=== PATIENT | male | born 1955 | race Caucasian/White ===

== ENCOUNTER 2016-07-07 15:47 | Observation (INO) | payer MEDICARE, OTHER ==
[~2016-07-07] VITALS: Ht 172.7 cm; Wt 113.4 kg
[2016-07-07] MEDS ORDERED: CRESTOR10 MG PO (18:25)
[2016-07-07] MEDS ORDERED: CLARITIN10 MG PO (18:25)
[2016-07-07] MEDS ORDERED: ASPIRIN325 MG PO (18:25)
[2016-07-07] MEDS ORDERED: RANEXA1000 MG PO (18:26)
[2016-07-07] MEDS ORDERED: WARFARIN SODIUM3 MG PO (18:27)
[2016-07-07] MEDS ORDERED: WARFARIN SODIUM1 MG PO (18:27)
[2016-07-07] MEDS ORDERED: LOPRESSOR 25 MG25 MG PO (18:28)
[2016-07-07] MEDS ORDERED: ISOSORBIDE MONO60 MG PO (18:29)
[2016-07-07] MEDS ORDERED: METFORMIN HCL500 MG PO (18:29)
[2016-07-07] MEDS ORDERED: MIRAPEX0.25 MG PO (18:33)
[2016-07-08 02:24] LABS: HEMOGLOBIN 13.6 gm/dl (14.0-17.5); RED BLOOD COUNT 4.34 M/UL (4.20-5.50); WHITE BLOOD COUNT 5.6 K/UL (4.5-11.0)
[2016-07-08 02:57] LABS: BUN/CREATININE RATIO 11 (0-10)
[2016-07-08] MEDS ORDERED: ASPIR 8181 MG PO (18:35)
[2016-07-08] MEDS ORDERED: NITROSTAT 0.425 TAB SL (18:38)
== END 2016-07-08 19:30 | disposition home or self-care (01) ==
LOC: MED SURG 4 15:47 → M/S 17:53
PROVIDERS: ADMIT Family Medicine
DX: R07.9 Chest pain, unspecified (principal); J98.09 Other diseases of bronchus, not elsewhere classified; I25.10 Atherosclerotic heart disease of native coronary artery without angina pectoris; I10 Essential (primary) hypertension; E11.9 Type 2 diabetes mellitus without complications; E78.5 Hyperlipidemia, unspecified; D68.59 Other primary thrombophilia; E66.9 Obesity, unspecified; Z86.73 Personal history of transient ischemic attack (TIA), and cerebral infarction without residual deficits; Z87.891 Personal history of nicotine dependence; Z88.0 Allergy status to penicillin; Z88.8 Allergy status to other drugs, medicaments and biological substances; Z91.041 Radiographic dye allergy status; Z79.01 Long term (current) use of anticoagulants; Z79.82 Long term (current) use of aspirin; Z79.899 Other long term (current) drug therapy
CPT/HCPCS: ECHO; 36415; 71010; 78452; 80048; 80061; 82550; 82553; 82962; 83036; 83690; 83735; 84439; 84443; 84484; 85025; 85610; 93005; 93017; 93306; 94640; 94664; A9502; G0378; G0379; J2785

== ENCOUNTER → 2021-06-26 | Outpatient (CLI) | payer MEDICARE ==
[~2021-06-26] MED LIST: ALL DAY ALLERGY10 M3 PO; ASPIR 8181 MG PO; ASPIRIN325 MG PO; CLARITIN10 MG PO; CRESTOR10 MG PO; ISOSORBIDE MONO60 MG PO; LOPRESSOR 25 MG25 MG PO; METFORMIN HCL500 MG PO; MIRAPEX0.25 MG PO; NITROSTAT 0.425 TAB SL; RANEXA1000 MG PO; WARFARIN SODIUM1 MG PO; WARFARIN SODIUM3 MG PO
== END ==
LOC: KOH-I 06-25 09:00
DX: D69.6 Thrombocytopenia, unspecified (principal)
CPT/HCPCS: 76705